=== PATIENT | male | born 1985 | race Two or more races ===

== ENCOUNTER 2018-01-18 12:14 | Emergency (ER) | payer OTHER ==
--- NOTE | 2018-01-18 13:05 | ED Physician Documentation ---
PD HPI HEENT - Stated complaint Stated Complaint: SWALLOWED FORIEGN OBJECT - Chief complaint Chief Complaint: Heent - History obtained from History obtained from: Patient - History of Present Illness Timing - onset: Last night Timing - details: Abrupt onset (he was eating cake with plastic fork and noted a sharp feeling when he swallowed, and noted a tyne of the fork was missing, apparently broken off. He had some discomfort with swallowing last night, but it is worse this morning. concerned it is stuck in his esophagus. He is able to swallow bread and water okay, but hurts to do so.) Location: Throat Worsens: Swalllowing Associated symptoms: No: Fever, Congestion Similar symptoms before: Has not had sx before Recently seen: Not recently seen Review of Systems Constitutional: denies: Fever Nose: denies: Rhinorrhea / runny nose, Congestion Throat: reports: Sore throat. denies: Oral lesions / sores, Swollen tonsils Cardiac: denies: Palpitations Respiratory: denies: Dyspnea, Cough GI: denies: Abdominal Pain, Nausea, Vomiting PD PAST MEDICAL HISTORY - Past Medical History Past Medical History: No Respiratory: None - Past Surgical History Past Surgical History: No - Present Medications Home Medications: Ambulatory Orders Medication Instructions Recorded Confirmed Lidocaine Viscous 2% [Xylocaine 5 ml PO Q4H PRN #1 bottle 01/18/18 Viscous 2%] - Allergies Allergies/Adverse Reactions: Allergies Allergy/AdvReac Type Severity Reaction Status Date / Time No Known Drug Allergies Allergy Verified 01/18/18 12:33 - Social History Does the pt smoke?: No Smoking Status: Never smoker Does the pt drink ETOH?: Yes Does the pt have substance abuse?: No - Immunizations Immunizations are current?: Yes PD ED PE NORMAL - Vitals Vital signs reviewed: Yes - General General: Alert and oriented X 3, No acute distress, Well developed/nourished - HEENT HEENT: Pharynx benign - Neck Neck: Supple, no meningeal sign, No adenopathy - Cardiac Cardiac: RRR, No murmur - Respiratory Respiratory: Clear bilaterally - Neuro Neuro: Alert and oriented X 3, No motor deficit, Normal speech Results - Vitals Vitals: Vital Signs - 24 hr 01/18/18 01/18/18 12:28 15:43 Temperature 36.5 C Heart Rate 59 L 61 Respiratory 18 16 Rate Blood Pressure 107/67 115/87 H O2 Saturation 97 99 Oxygen O2 Source Room air PD MEDICAL DECISION MAKING - ED course Complexity details: reviewed results (CT done and no FB seen (not 100% i'm sure ) and no signs of medistinal inflammation.), considered differential (consider EGD versus other evaluation. Concern for FB and also mediastinitis.), d/w patient, d/w applications sales consultant (Dr. Beck - who looked at CT and did not see obvious FB. It could still be there though. Consider abrasion more. To give it a day or so and do EGD if still symptomatic then. ) - Sepsis Event Vital Signs: Vital Signs - 24 hr 01/18/18 01/18/18 12:28 15:43 Temperature 36.5 C Heart Rate 59 L 61 Respiratory 18 16 Rate Blood Pressure 107/67 115/87 H O2 Saturation 97 99 Oxygen O2 Source Room air Departure - Departure Disposition: 01 Home, Self Care Clinical Impression: Esophageal pain Condition: Stable Record reviewed to determine appropriate education?: Yes Follow-Up: NILAY BECK MD [Provider Admit Priv/Credential] - [facility]Provider Group] Prescriptions: Lidocaine Viscous 2% [Xylocaine Viscous 2%] 5 ml PO Q4H PRN #1 bottle PRN Reason: Pain Comments: The radiologist and surgeon did not see any obvious foreign body on the CT scan nor signs of esophageal local inflammation. There may be an abrasion of the esophagus that is hurting and that would heal within another day or [address] scan is not 100% accurate so if you have persistent symptoms for another day or 2 then call the surgical center or return to the ER for possible esophageal endoscopy. Return sooner if worsening pain, fever, vomiting, other problems. Use Tylenol or ibuprofen if needed for pain. Soft food only for the next day. Add lidocaine with antacid to help with discomfort as needed. Discharge Date/Time: 01/18/18 15:43
[2018-01-18] MEDS ORDERED: MAG HYDROX/AL HYDROX/SIMETH 30 ML UDC PO STA (13:28)
[2018-01-18] MEDS ORDERED: LIDOCAINE VISCOUS 2% 15 ML UDC MM STA (13:28)
--- NOTE | 2018-01-18 14:41 | CT Report ---
Procedure Date: 01/18/2018 Accession Number: [id number] / [id number] Procedure: CT - Chest W/O CPT Code: FULL RESULT: EXAM: CT CHEST EXAM DATE: 01/18/2018 02:17 PM. CLINICAL HISTORY: Possible esophageal FB; plastic fork tyne. COMPARISONS: None. TECHNIQUE: Routine helical CT imaging was performed through the chest. IV contrast: None. Reconstructions: Coronal and sagittal. In accordance with CT protocol optimization, one or more of the following dose reduction techniques were utilized for this exam: automated exposure control, adjustment of mA and/or KV based on patient size, or use of iterative reconstructive technique. FINDINGS: Lungs/Pleura: No nodules, bronchial thickening, consolidation, or edema. Pulmonary vasculature is normal. No pericardial or pleural effusion. No pneumothorax. No endobronchial lesions nor foreign bodies. Mediastinum: Normal. No adenopathy or masses. The heart and great vessels are normal. Subglottic cervical esophagus normal. Thoracic esophagus is normal. No foreign bodies. Bones: Unremarkable. Visualized Abdomen: Unremarkable. Other: No foreign bodies. IMPRESSION: Normal noncontrast chest CT. RADIA
[2018-01-18 15:45] VITALS: BP 115/87
== END 2018-01-18 15:43 | disposition home or self-care (01) ==
LOC: ED 12:14
DX: R07.0 Pain in throat (principal)
CPT/HCPCS: 71250; 99283; A9270

== ENCOUNTER 2018-09-19 12:28 | Emergency (ER) | payer OTHER ==
[2018-09-19 13:01] LABS: BASOPHILS % (AUTO) 1.4 %; EOSINOPHILS # (AUTO) 0.1 10^3/uL (0.0-0.7); EOSINOPHILS % (AUTO) 2.4 %; HGB - HEMOGLOBIN 13.6 g/dL (14.0-18.0); LYMPHOCYTES # (AUTO) 1.2 10^3/uL (1.5-3.5); LYMPHOCYTES % (AUTO) 31.5 %; MEAN CORPUSCULAR HEMOGLOBIN 30.7 pg (27.0-31.0); MEAN CORPUSCULAR HGB CONC 34.1 g/dL (32.0-36.0); MEAN PLATELET VOLUME 7.9 fL (7.4-11.4); MONOCYTES # (AUTO) 0.3 10^3/uL (0.0-1.0); MONOCYTES % (AUTO) 8.9 %; NEUTROPHILS % (AUTO) 55.8 %; PLT - PLATELET COUNT 188 10^3/uL (130-450); RED BLOOD COUNT 4.45 10^6/uL (4.70-6.10); RED CELL DISTRIBUTION WIDTH 12.7 % (12.0-15.0); WHITE BLOOD COUNT 3.7 x10^3/uL (4.8-10.8)
[2018-09-19 13:11] LABS: ALBUMIN 4.4 g/dL (3.2-5.5); ALBUMIN/GLOBULIN RATIO 1.7 (1.0-2.2); BILIRUBIN,TOTAL 0.8 mg/dL (0.2-1.0); CALCIUM 9.3 mg/dL (8.5-10.3); CREATININE 0.7 mg/dL (0.6-1.2)
[2018-09-19 14:29] VITALS: BP 127/83
--- NOTE | 2018-09-19 14:30 | ED Physician Documentation ---
PD HPI ABD PAIN - Stated complaint Stated Complaint: Rectal Bleed - Chief complaint Chief Complaint: General - History obtained from History obtained from: Patient - History of Present Illness Timing - onset: Other (This is a previously healthy 33-year-old gentleman with 3 days of rectal bleeding, sometimes with soft stools and sometimes without stools. He denies any rectal pain with it but does feel slightly bloated and has some lower abdominal pressure. He is mildly nauseous today.) Review of Systems Constitutional: denies: Fever, Chills, Myalgias, Fatigue, Weight Loss, Sweats GI: reports: Nausea. denies: Vomiting, Constipation, Hematemesis : denies: Dysuria, Frequency PD PAST MEDICAL HISTORY - Past Medical History Past Medical History: No Respiratory: None - Past Surgical History Past Surgical History: No - Present Medications Home Medications: Ambulatory Orders Medication Instructions Recorded Confirmed Hydrocortisone Acetate 25 mg RC TID 09/19/18 09/19/18 - Allergies Allergies/Adverse Reactions: Allergies Allergy/AdvReac Type Severity Reaction Status Date / Time No Known Drug Allergies Allergy Verified 09/19/18 14:19 - Social History Does the pt smoke?: No Smoking Status: Never smoker Does the pt drink ETOH?: Yes Does the pt have substance abuse?: No - Immunizations Immunizations are current?: Yes PD ED PE NORMAL - Vitals Vital signs reviewed: Yes - General General: Alert and oriented X 3, No acute distress - Abdomen Abdomen: Normal bowel sounds, Soft, Non tender - Male Male : Other (No external hemorrhoids, nontender, no gross blood in the vault.) - Derm Derm: Normal color, Warm and dry - Neuro Neuro: Alert and oriented X 3, Normal speech Results - Vitals Vitals: Vital Signs - 24 hr 09/19/18 09/19/18 12:36 14:16 Temperature 36.5 C 36.4 C L Heart Rate 71 64 Respiratory 14 18 Rate Blood Pressure 128/71 140/84 H O2 Saturation 98 100 Oxygen O2 Source Room air - Labs Labs: Laboratory Tests 09/19/18 09/19/18 12:50 12:50 WBC 3.7 L RBC 4.45 L Hgb 13.6 L Hct 40.0 L MCV 90.0 MCH 30.7 MCHC 34.1 RDW 12.7 Plt Count 188 MPV 7.9 Neut # (Auto) 2.0 Lymph # (Auto) 1.2 L [place] # (Auto) 0.3 Eos # (Auto) 0.1 Baso # (Auto) 0.0 Absolute Nucleated RBC 0.00 Nucleated RBC % 0.0 Sodium 136 Potassium 3.8 Chloride 100 L Carbon Dioxide 28 Anion Gap 8.0 BUN 12 Creatinine 0.7 Estimated GFR (MDRD) 131 Glucose 129 H Calcium 9.3 Total Bilirubin 0.8 AST 29 ALT 27 Alkaline Phosphatase 54 Total Protein 7.0 Albumin 4.4 Globulin 2.6 Albumin/Globulin Ratio 1.7 Lipase 26 PD MEDICAL DECISION MAKING - ED course ED course: This is a 33-year-old gentleman who is hemodynamically stable with a lower GI bleed, no evidence of hemorrhoid. The pattern is concerning for inflammatory bowel disease, his labs today are reassuring and close follow-up for colonoscopy with his primary care physician was advised. Departure - Departure Disposition: 01 Home, Self Care Clinical Impression: Hematochezia Condition: Good Record reviewed to determine appropriate education?: Yes Instructions: ED Hematochezia Stable Comments: As discussed, your presentation is concerning for something like inflammatory bowel disease such as Crohn's disease or ulcerative colitis. [place] to evaluate this. Return if worse or if the dizziness is worse. [place] Forms: Activity restrictions
== END 2018-09-19 14:45 | disposition home or self-care (01) ==
LOC: ED 12:28
DX: K92.1 Melena (principal)
CPT/HCPCS: 36415; 80053; 83690; 85025; 99283

== ENCOUNTER 2018-10-10 08:07 | Day surgery (SDC) | payer OTHER ==
[2018-10-10] MEDS ORDERED: LACTATED RINGERS 1,000 ML IV ONE ×3 (08:09→10:56)
[2018-10-10] MEDS ORDERED: fentaNYL 250 MCG/5 ML VIAL IVP ONE (09:30)
[2018-10-10] MEDS ORDERED: MIDAZOLAM 2 MG/2 ML VIAL IVP ONE (09:30)
[2018-10-10] MEDS ORDERED: LIDOCAINE-MPF 2% 5 ML VIAL IM ONE (10:54)
[2018-10-10] MEDS ORDERED: PROPOFOL 200 MG/20 ML VIAL IVP ONE (10:54)
[2018-10-10 12:18] VITALS: BP 113/72
== END 2018-10-10 08:08 | disposition home or self-care (01) ==
LOC: SDS 08:07
PROVIDERS: ATTEND Internal Medicine Gastroenterology
PROC: 0DBP8ZZ Excision of Rectum, Via Natural or Artificial Opening Endoscopic (ICD-10-PCS; principal; 2018-10-10 09:30)
DX: D12.8 Benign neoplasm of rectum (principal); K64.8 Other hemorrhoids; K59.09 Other constipation; Z87.891 Personal history of nicotine dependence
CPT/HCPCS: 45380; J3010; J7120

== ENCOUNTER 2019-01-14 09:38 | Outpatient (CLI) | payer OTHER ==
--- NOTE | 2019-01-14 23:59 | MRI Report ---
Reason: MIGRAINE, UNSPECIFIED, NOT INTRACTABLE, W/O STATUS Procedure Date: 01/14/2019 Accession Number: [id number] / [id number] Procedure: MRI - Brain W/O CPT Code: FULL RESULT: EXAM: MRI BRAIN WITHOUT CONTRAST COMPARISON: NONE. CLINICAL HISTORY: MIGRAINE, UNSPECIFIED, NOT INTRACTABLE, W/O STATUS. TECHNIQUE: Multiplanar multisequence imaging is performed through the head without contrast. FINDINGS: Diffusion-weighted imaging shows no acute infarct. Gradient sequence shows no evident prior parenchymal hemorrhage. T2 FLAIR imaging shows minimal white matter T2 prolongation, no masses. Ventricular size is normal. T2 spin-echo imaging shows no posterior fossa masses. No abnormal FLAIR signal in the vertebral arteries. No abnormal elevated T1 signal in the brain parenchyma. No developmental anomalies. Ventricular size is normal. Pituitary fossa, clivus and foramen magnum are unremarkable. Visualized orbits and calvarium are unremarkable. Medial temporal structures are normal. There is at least mild predominantly left-sided paranasal sinus mucosal thickening, with fluid in the left sphenoid sinus, finding which may be associated with headaches. Clinical correlation suggested. IMPRESSION: No acute infarct, parenchymal mass, or other discrete acute parenchymal process identified. There are findings concordant with paranasal sinusitis, particularly with an air-fluid level in the left sphenoid sinus. Finding may be associated with headache.
== END 2019-01-14 09:39 | disposition home or self-care (01) ==
LOC: DI 09:38
PROVIDERS: ATTEND Physician Assistant
DX: G43.909 Migraine, unspecified, not intractable, without status migrainosus (principal)
CPT/HCPCS: 70551

== ENCOUNTER 2019-08-21 13:59 | Emergency (ER) | payer OTHER ==
--- NOTE | 2019-08-21 14:36 | ED Physician Documentation ---
PD HPI CHEST PAIN - Stated complaint Stated Complaint: SOA/DIZZINESS - Chief complaint Chief Complaint: Resp - History obtained from History obtained from: Patient (33-year-old gentleman has had episodic shortness of breath for the last 2 days. There is no real pattern to it but it is usually with activity, he gets lightheaded when it happens. Does not last year on. It is associated with some very mild left lower anterior chest pain. Fatigue. No recent travel. No cough. No pedal edema or calf pain.) - Additional information Additional information: Nurses notes suggest there is a cough he denies this to me. Review of Systems Ten Systems: 10 systems reviewed and negative Constitutional: denies: Fever, Chills Nose: denies: Rhinorrhea / runny nose, Congestion Throat: denies: Sore throat Cardiac: denies: Palpitations, Pedal edema, Calf pain Respiratory: denies: Cough, Hemoptysis, Wheezing GI: denies: Abdominal Pain PD PAST MEDICAL HISTORY - Past Medical History Cardiovascular: None Respiratory: None Endocrine/Autoimmune: None GI: GI bleed, Hemorrhoids, Other : None HEENT: None Musculoskeletal: None Derm: None - Past Surgical History Past Surgical History: No Ortho: Other - Present Medications Home Medications: Ambulatory Orders Medication Instructions Recorded Confirmed No Known Home Medications 08/21/19 08/21/19 - Allergies Allergies/Adverse Reactions: Allergies Allergy/AdvReac Type Severity Reaction Status Date / Time No Known Drug Allergies Allergy Verified 08/21/19 14:07 - Social History Does the pt smoke?: No Smoking Status: Never smoker Does the pt drink ETOH?: Yes Does the pt have substance abuse?: No - Immunizations Immunizations are current?: Yes PD ED PE NORMAL - Vitals Vital signs reviewed: Yes - General General: Alert and oriented X 3, No acute distress - HEENT HEENT: PERRL, EOMI - Neck Neck: Supple, no meningeal sign, No bony TTP - Cardiac Cardiac: RRR, No murmur - Respiratory Respiratory: No respiratory distress, Clear bilaterally - Abdomen Abdomen: Non tender - Extremities Extremities: No edema, No calf tenderness / cord - Neuro Neuro: Alert and oriented X 3, No motor deficit, No sensory deficit, Normal speech Eye Opening: Spontaneous Motor: Obeys Commands Verbal: Oriented GCS Score: 15 - Psych Psych: Normal mood, Normal affect Results - Vitals Vitals: Vital Signs - 24 hr 08/21/19 14:04 Temperature 36.6 C Heart Rate 57 L Respiratory 18 Rate Blood Pressure 119/76 O2 Saturation 99 Oxygen O2 Source Room air - EKG (time done) 1439 Rate: Rate (enter#) (55) Rhythm: NSR [place]: Normal Intervals: Normal VT QRS: Normal Ischemia: ST elevation c/w repol. No: ST elevation c/w ischemia, ST depression Computer interpretation: Agree with computer - Labs Labs: Laboratory Tests 08/21/19 08/21/19 08/21/19 14:53 14:53 14:53 WBC 5.7 RBC 4.52 L Hgb 14.1 Hct 41.4 L MCV 91.6 MCH 31.2 H MCHC 34.1 RDW 12.1 Plt Count 191 MPV 10.0 Neut # (Auto) 4.1 Lymph # (Auto) 1.2 L [place] # (Auto) 0.4 Eos # (Auto) 0.1 Baso # (Auto) 0.1 Absolute Nucleated RBC 0.00 Nucleated RBC % 0.0 Sodium 135 Potassium 4.3 Chloride 100 L Carbon Dioxide 28 Anion Gap 7.0 BUN 14 Creatinine 0.7 Estimated GFR (MDRD) 131 Glucose 102 H Calcium 9.6 Total Bilirubin 0.3 AST 24 ALT 22 Alkaline Phosphatase 55 Troponin I High Sens 4.8 Total Protein 7.3 Albumin 4.6 Globulin 2.7 Albumin/Globulin Ratio 1.7 Lipase 26 - Rads (name of study) 2v chest Radiology: EMP read contemporaneously (Normal) PD MEDICAL DECISION MAKING - ED course ED course: 33-year-old gentleman with episodic lightheadedness and presyncope, is only been going on for a couple of days. His exam is normal but we need to consider heart problems so an EKG and a troponin will be checked as well as pulmonary issues and a chest x-ray which will be checked. I considered pulmonary embolism in this patient. Clinically the pretest probability of pulmonary embolism is less than 15%. I applied to the PERC rules as follows: The patient's age is under 50, heart rate less than 100, oxygen saturation greater than 94%, the patient does not have a history of DVT or PE. Patient has no recent trauma or surgery. The patient has no hemoptysis. The patient is not on exogenous estrogens. The patient does not have clinical signs suggesting DVT. As such the patient ruled out for pulmonary embolism by PERC criteria. Departure - Departure Disposition: 01 Home, Self Care Clinical Impression: Pre-syncope Dyspnea Qualifiers: Dyspnea type: shortness of breath Qualified Code(s): R06.02 - Shortness of breath; R06.00 - Dyspnea, unspecified; R06.01 - Orthopnea Condition: Good Record reviewed to determine appropriate education?: Yes Instructions: ED Dyspnea Shortness of Breath Comments: Review of symptoms today is not clear. There is no evidence of significant heart or lung issue. Your blood counts are normal. We also checked your electrolytes, kidney, liver function. It all seems normal. Return for new or worsening symptoms. Could be related to vaping, I recommend you just stop. [place] appointment. From my perspective there is no reason you cannot return to work.
[2019-08-21 14:58] LABS: BASOPHILS # (AUTO) 0.1 10^3/uL (0.0-0.1); BASOPHILS % (AUTO) 0.9 %; EOSINOPHILS # (AUTO) 0.1 10^3/uL (0.0-0.7); EOSINOPHILS % (AUTO) 1.4 %; HGB - HEMOGLOBIN 14.1 g/dL (14.0-18.0); LYMPHOCYTES # (AUTO) 1.2 10^3/uL (1.5-3.5); LYMPHOCYTES % (AUTO) 20.4 %; MEAN CORPUSCULAR HEMOGLOBIN 31.2 pg (27.0-31.0); MEAN CORPUSCULAR HGB CONC 34.1 g/dL (32.0-36.0); MEAN CORPUSCULAR VOLUME 91.6 fL (80.0-94.0); MONOCYTES # (AUTO) 0.4 10^3/uL (0.0-1.0); MONOCYTES % (AUTO) 6.4 %; NEUTROPHILS # (AUTO) 4.1 10^3/uL (1.5-6.6); NEUTROPHILS % (AUTO) 70.6 %; PLT - PLATELET COUNT 191 10^3/uL (130-450); RED BLOOD COUNT 4.52 10^6/uL (4.70-6.10); RED CELL DISTRIBUTION WIDTH 12.1 % (12.0-15.0); WHITE BLOOD COUNT 5.7 x10^3/uL (4.8-10.8)
--- NOTE | 2019-08-21 14:59 | XRAY Report ---
Reason: cough Procedure Date: 08/21/2019 Accession Number: [id number] / [id number] Procedure: XR - Chest 2 View X-Ray CPT Code: 16592 Final Report FULL RESULT: EXAM: CHEST RADIOGRAPHY EXAM DATE: 08/21/2019 02:45 PM. CLINICAL HISTORY: Cough. COMPARISON: None. TECHNIQUE: 2 views. FINDINGS: Lungs/Pleura: No focal opacities evident. No pleural effusion. No pneumothorax. Normal volumes. Mediastinum: Heart and mediastinal contours are unremarkable. Other: None. IMPRESSION: Normal 2-view chest radiography. RAD[facility]
[2019-08-21 15:21] LABS: ALBUMIN 4.6 g/dL (3.2-5.5); ALBUMIN/GLOBULIN RATIO 1.7 (1.0-2.2); BILIRUBIN,TOTAL 0.3 mg/dL (0.2-1.0); CALCIUM 9.6 mg/dL (8.5-10.3); CREATININE 0.7 mg/dL (0.6-1.2); TOTAL PROTEIN 7.3 g/dL (6.7-8.2)
[2019-08-21 15:50] VITALS: BP 110/72
== END 2019-08-21 15:49 | disposition home or self-care (01) ==
LOC: ED 13:59
DX: R55 Syncope and collapse (principal); R42 Dizziness and giddiness; R06.02 Shortness of breath; R06.01 Orthopnea; F17.290 Nicotine dependence, other tobacco product, uncomplicated
CPT/HCPCS: 36415; 71046; 80053; 83690; 84484; 85025; 93005; 99283; 99284

== ENCOUNTER 2019-10-02 11:00 | Emergency (ER) | payer OTHER ==
[2019-10-02 11:39] LABS: BASOPHILS # (AUTO) 0.1 10^3/uL (0.0-0.1); BASOPHILS % (AUTO) 1.2 %; EOSINOPHILS # (AUTO) 0.1 10^3/uL (0.0-0.7); EOSINOPHILS % (AUTO) 2.3 %; HGB - HEMOGLOBIN 14.1 g/dL (14.0-18.0); LYMPHOCYTES # (AUTO) 1.3 10^3/uL (1.5-3.5); LYMPHOCYTES % (AUTO) 26.1 %; MEAN CORPUSCULAR HEMOGLOBIN 31.4 pg (27.0-31.0); MEAN CORPUSCULAR HGB CONC 34.6 g/dL (32.0-36.0); MEAN CORPUSCULAR VOLUME 90.6 fL (80.0-94.0); MEAN PLATELET VOLUME 9.5 fL (7.4-11.4); MONOCYTES # (AUTO) 0.4 10^3/uL (0.0-1.0); MONOCYTES % (AUTO) 7.8 %; NEUTROPHILS % (AUTO) 62.2 %; PLT - PLATELET COUNT 224 10^3/uL (130-450); RED BLOOD COUNT 4.49 10^6/uL (4.70-6.10); RED CELL DISTRIBUTION WIDTH 12.1 % (12.0-15.0); WHITE BLOOD COUNT 4.9 x10^3/uL (4.8-10.8)
[2019-10-02 11:49] LABS: ALBUMIN 4.7 g/dL (3.2-5.5); ALBUMIN/GLOBULIN RATIO 1.6 (1.0-2.2); BILIRUBIN,TOTAL 0.8 mg/dL (0.2-1.0); CALCIUM 9.4 mg/dL (8.5-10.3); CREATININE 0.7 mg/dL (0.6-1.2); TOTAL PROTEIN 7.7 g/dL (6.7-8.2)
--- NOTE | 2019-10-02 12:32 | ED Physician Documentation ---
PD HPI GI BLEED - Stated complaint Stated Complaint: MALE - Chief complaint Chief Complaint: Abd Pain - History obtained from History obtained from: Patient - History of Present Illness Timing - onset: How many days ago (3) Timing - duration: Days (3) Timing - details: Gradual onset, Still present Associated symptoms: BRBPR Contributing factors: No: Sick contact, Bad food, Travel, Recent antibiotics, Alcohol use, Aspirin use, NSAID use, Stress, Anticoagulated, Diabetes Similar symptoms before: Diagnosis (internal hemmorrhoids) Recently seen: Not recently seen - Additional information Additional information: Previously well 34-year-old male has developed bright red blood per rectum over the past 3 days. He states that he has a little bit of blood each time that he wipes since last year. He does state that he now has some pain associated with all this and he can feel a hemorrhoidal tag externally. He has had colonoscopy in follow-up from his episode last year at which time there were internal h emorrhoids demonstrated. Review of Systems Constitutional: denies: Fever Eyes: denies: Decreased vision Ears: denies: Ear pain Nose: denies: Congestion Respiratory: denies: Dyspnea, Cough GI: reports: Diarrhea, Bloody / black stool. denies: Abdominal Pain, Nausea, Vomiting, Constipation : denies: Dysuria PD PAST MEDICAL HISTORY - Past Medical History Cardiovascular: None Respiratory: None Endocrine/Autoimmune: None GI: GI bleed, Hemorrhoids, Other : None HEENT: None Musculoskeletal: None Derm: None - Past Surgical History Past Surgical History: No Ortho: Other - Present Medications Home Medications: Ambulatory Orders Medication Instructions Recorded Confirmed No Known Home Medications 08/21/19 08/21/19 - Allergies Allergies/Adverse Reactions: Allergies Allergy/AdvReac Type Severity Reaction Status Date / Time No Known Drug Allergies Allergy Verified 10/02/19 11:11 - Social History Does the pt smoke?: No Smoking Status: Never smoker Does the pt drink ETOH?: Yes Does the pt have substance abuse?: No - Immunizations Immunizations are current?: Yes PD ED PE NORMAL - Vitals Vital signs reviewed: Yes (hypertensive ) - General General: Alert and oriented X 3, No acute distress, Well developed/nourished - HEENT HEENT: Atraumatic, PERRL, EOMI - Neck Neck: Supple, no meningeal sign, No bony TTP - Respiratory Respiratory: No respiratory distress - Rectal Rectal: Other (hemorrhoidal tags at 6 o'clock without evidence of thrombosis or active bleeding. There are inflamed internal hemorrhoids present and no blood or stool in the vault. 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, No motor deficit, No sensory deficit, Normal speech Eye Opening: Spontaneous Motor: Obeys Commands Verbal: Oriented GCS Score: 15 - Psych Psych: Normal mood, Normal affect Results - Vitals Vitals: Vital Signs - 24 hr 10/02/19 10/02/19 11:02 12:42 Temperature 36.9 C 36.9 C Heart Rate 66 68 Respiratory 16 20 Rate Blood Pressure 126/84 H 137/79 H O2 Saturation 99 100 Oxygen O2 Source Room air - Labs Labs: Laboratory Tests 10/02/19 10/02/19 11:28 11:28 WBC 4.9 RBC 4.49 L Hgb 14.1 Hct 40.7 L MCV 90.6 MCH 31.4 H MCHC 34.6 RDW 12.1 Plt Count 224 MPV 9.5 Neut # (Auto) 3.0 Lymph # (Auto) 1.3 L [place] # (Auto) 0.4 Eos # (Auto) 0.1 Baso # (Auto) 0.1 Absolute Nucleated RBC 0.00 Nucleated RBC % 0.0 Sodium 135 Potassium 4.1 Chloride 99 L Carbon Dioxide 28 Anion Gap 8.0 BUN 16 Creatinine 0.7 Estimated GFR (MDRD) 130 Glucose 111 H Calcium 9.4 Total Bilirubin 0.8 AST 32 ALT 37 Alkaline Phosphatase 66 Total Protein 7.7 Albumin 4.7 Globulin 3.0 Albumin/Globulin Ratio 1.6 Lipase 26 PD MEDICAL DECISION MAKING - ED course Complexity details: considered differential, d/w patient ED course: 34-year-old male with rectal bleeding has had prior episode of rectal bleeding and has had colonoscopy which did demonstrate internal hemorrhoids. He does have inflamed or engorged internal hemorrhoids now. I did not get any blood on the glove. I have discussed with the patient treatment of the hemorrhoids to include administration of hydrocortisone twice per day until his inflammation is controlled. I did discuss with the patient signs and symptoms of inflammatory bowel disease he does have chronically diarrhea he is now having some blood in this and I have recommended he follow-up again with the surgeon for potential scoping. Departure - Departure Disposition: 01 Home, Self Care Clinical Impression: Hematochezia Hemorrhoids Qualifiers: Hemorrhoid type: unspecified Qualified Code(s): K64.9 - Unspecified hemorrhoids Condition: Stable Instructions: ED Hemorrhoids, ED Hematochezia Stable Follow-Up: Des Pimentel MD [Primary Care Provider] - [facility]Provider Group] Comments: Today it appears your bleeding is due to hemorrhoids and my recommendation is to use some hydrocortisone 1% available [id number] twice per day until your symptoms are improved. Forms: Activity restrictions Discharge Date/Time: 10/02/19 12:45
[2019-10-02 12:43] VITALS: BP 137/79
== END 2019-10-02 12:45 | disposition home or self-care (01) ==
LOC: ED 11:00
DX: K92.1 Melena (principal); K64.8 Other hemorrhoids; K52.9 Noninfective gastroenteritis and colitis, unspecified
CPT/HCPCS: 36415; 80053; 83690; 85025; 99283; 99284

== ENCOUNTER 2020-02-14 09:02 | Outpatient (CLI) | payer OTHER ==
[2020-02-14 09:55] VITALS: BP 110/70
--- NOTE | 2020-02-14 09:55 | SLEEP CARE CONSULTATION ---
Information from patient questionnaire entered by Emely Etienne. I have reviewed and concur with the information entered by Emely Etienne. This document represents the service I personally performed and the decisions made by me, Aleyda Sharp ARNP. History of Present Illness Service Date and Time: 02/14/2020901 Reason for Visit: New patient Chief Complaint: reports: Unrefreshed sleep, Snoring, Excessive daytime sleepiness, Observed pauses in breathing, Fatigue, Frequent awakenings at night, Other (wake up during the night and can't go back to sleep, most nights). denies: Insomnia Date of Onset: 2+ years Usual bedtime: 6727-6883 Time it takes to fall asleep: 30-60 minutes Snores at night: Yes Observed to quit breathing while asleep: Yes Sleeps alone due to snoring: No Number of times waking at night: 3-5 Reasons for waking at night: reports: Snoring, Gasping for air. denies: Choking Toss, Turn, or Twitch while sleeping: Yes Recalls having dreams: Yes Usually gets out of bed at: [id number]; 0730 on weekends Feels refreshed in the morning: No Morning headache: Yes (2 times a month; 1-2 hours to all day) Sleepy or fatigued during the day: Yes Ever fallen asleep while driving: Yes (drowsy driving; no accidents) Takes day naps: No Dreams during day naps: Yes Prior sleep studies: No Additional HPI information: I had the pleasure of seeing MICHELE BURRIS today regarding the possibility of him having a sleep disorder. His current complaints are unrefreshed sleep, witness pauses in breathing when sleeping, excessive sleepiness, fatigue and frequent night awakenings. He feels like it is hard to get things done due to being tired all the time. His has witnessed pauses in his breathing and has had to "shake" him to get him breathing again. He has gained 25 pounds since the pandenic started due to his gym closing and reduced activity. He is currently working on losing the weight and getting back into shape. He has no medical conditions and is not on any medications. His father and 2 siblings are being treated for sleep apnea. He has grandparents on both sides who had sleep apnea. - Parasomnia Symptoms Ever been unable to move upon waking from sleep: Yes Walks in sleep: No Talks in sleep: No Ever acted out dreams in sleep: Yes Ever felt weak in the knees when startled or emotional: No Bothered by creepy, crawly, restless sensations in legs: No Problems with memory or concentration: Yes Subjective Initial [place] Sleepiness Scale score: 19 (in 2019) Past Medical History Past Medical History: reports: Impotence, Other (no diagnosis but experienced anxiety and mood swings). denies: Hypertension, Claustrophobia, Congestive Heart Failure, Diabetes, Stroke, Coronary Heart Disease, Arrythmia, Hypothyroidism, Anemia, Depression, Mood disorder, GERD, Attention deficit Social History The patient's occupation is active . Patient is and lives in [place]. Have you smoked in the past 12 months: No Cigarettes per day (20/pack): 10 Years of smokin Quit date: 2017 Smoking Pack Years: 6.0 Alcohol use: Yes Alcohol amount and frequency: 2-3 drinks, every 2 weeks Caffeine use: Yes Caffeine amount and frequency: 3 cups of coffee, 4 times a week Family History Family history of sleep disordered breathing: Yes (2 other siblings) Family Hx Sleep Apnea: Father: Snoring, Sleep apnea - Treated, Sibling: Snoring, Sleep apnea - Treated, Grandparent: Sleep apnea - Treated Allergies and Home Medications Drug allergies reviewed: Yes (NKDA) Home medication list reviewed: Yes (no medications; creatine just started yesterday for muscle building) Review of Systems Weight gain over past 5 years: 25 Cardiovascular: reports: have to sleep sitting up. denies: high blood pressure, palpitations, chest pain, irregular heart rate or pulse Respiratory: denies: shortness of breath, chronic cough Gastrointestinal: reports: heartburn. denies: difficulty swallowing Urinary: denies: impotence Neurological: denies: headaches, seizure, head trauma, speech dysfunction, gait or balance problems Psychiatric: reports: anxiety, mood disorder. denies: Attention Deficit Hyperactivity, depression, claustrophobia Ear/Nose/Throat: reports: nasal congestion, wisdom teeth removed. denies: sinus problems, nose bleeds, dry mouth/throat, hoarseness, injury to nose, tonsillectomy Endocrine: reports: sluggishness, unexplained weakness. denies: thyroid disease Musculoskeletal: reports: joint pain, neck pain, back pain, mobility problems Immunologic: reports: sneezing, rash, itching. denies: allergies to food or environment Physical Exam Blood Pressure: 110/70 Cuff size: long Heart Rate: 62 O2 Saturation: 98 Height: 6 ft Weight: 188 lb Body Mass Index: 25.4 BMI Classification: Overweight Neck circumference: 15.5 (inches) HEENT: No craniofacial malformation Nostrils: patent to airflow Turbinates: normal Septum: deviated left Mouth and throat: normal Soft palate: normal Hard palate: arched Uvula visualization: 100% Mallampati Class I Tongue: enlarged in size with teeth beltrán on lateral edges Tonsils: 1+ Chin and jaw: normal size and position Neck: normal w/o lymphadenopathy or thyromegaly Heart: regular rate and rhythm Lungs: clear bilaterally Extremities: no edema or clubbing Impression and Plan 1. Suspected Obstructive Sleep Apnea-Hypopnea Syndrome, as suggested by a history of loud and irregular snoring, observed cessation of breath while as leep, gasping or choking in sleep, frequent awakening during the night, unrefreshed sleep, cognitive impairment, and excessive daytime sleepiness. Narrow oropharynx and obesity are common predisposing factors for obstructive sleep apnea-hypopnea syndrome. I recommend proceeding to polysomnography to confirm the diagnosis and to assess severity. If the patient has significant sleep disordered breathing, a manual CPAP titration study will also be performed to find the optimal treatment pressure. I informed the patient of what the sleep studies involve and after some discussion, obtained agreement to proceed. The pathophysiology of obstructive sleep apnea-hypopnea syndrome was discussed with the patient and health risks of cardiovascular and cerebrovascular disease if not treated. AAS brochure for obstructive sleep apnea-hypopnea syndrome given and reviewed. Risks of drowsy driving discussed in detail and patient advised to avoid long distance driving and to machine puller at the first sign of drowsiness. Patient agreed to plan. AAS drowsy driving brochure given. * Schedule polysomnography +- manual CPAP titration study. * Avoid long distance driving or driving when feeling sleepy. * Avoid alcohol, sedative and muscle relaxant around bedtime. * Attempt to lose weight. * Review instructions provided by trained office staff on how to prepare for the sleep study. * Return for follow-up after sleep study completed. Visit Type: In Office Time Spent with Patient (minutes): 27 Provider Statement: I spent 100% of the Face to Face Visit with the patient with greater than 50% spent counseling the patient and coordination of care.
== END 2020-02-14 09:03 | disposition home or self-care (01) ==
LOC: SC 09:02
PROVIDERS: ATTEND Nurse Practitioner Family
DX: R06.83 Snoring (principal); R06.81 Apnea, not elsewhere classified; R53.83 Other fatigue; G47.10 Hypersomnia, unspecified; G47.8 Other sleep disorders; E66.3 Overweight; Z68.25 Body mass index [BMI] 25.0-25.9, adult
CPT/HCPCS: 99204; 99212

== ENCOUNTER 2020-02-29 12:19 | Emergency (ER) | payer OTHER ==
--- NOTE | 2020-02-29 14:38 | ED Physician Documentation ---
History of Present Illness - Stated complaint Stated Complaint: MALE /ABD PX - Chief complaint Chief Complaint: Abd Pain - History obtained from History obtained from: Patient - History of Present Illness Timing: Today Pain level max: 5 Pain level now: 4 - Additonal information Additional information: 34-year-old male presents to the emergency department stating that he has left lower quadrant abdominal pain radiating into the left groin. States he has tenderness to palpation over the left testicle and noticed mild swelling earlier today. No change in sexual partners. No STI exposure. No penile discharge. Nothing makes it better or worse. Has not had similar symptoms in the past. No dysuria, urinary frequency. Nothing makes it better or worse Review of Systems Constitutional: denies: Fever, Chills Nose: denies: Rhinorrhea / runny nose, Congestion Throat: denies: Sore throat Cardiac: denies: Chest pain / pressure, Palpitations Respiratory: denies: Dyspnea, Cough GI: denies: Abdominal Pain, Nausea, Vomiting, Diarrhea : denies: Dysuria, Frequency, Hesitancy, Incontinent, Hematuria, Discharge Skin: denies: Rash Musculoskeletal: denies: Neck pain, Back pain Neurologic: denies: Headache PD PAST MEDICAL HISTORY - Past Medical History Past Medical History: Yes Cardiovascular: None Respiratory: None Neuro: None Endocrine/Autoimmune: None GI: GI bleed, Hemorrhoids, Other : None HEENT: None Musculoskeletal: None Derm: None - Past Surgical History Past Surgical History: No Ortho: Other - Present Medications Home Medications: Ambulatory Orders Medication Instructions Recorded Confirmed No Known Home Medications 08/21/19 08/21/19 - Allergies Allergies/Adverse Reactions: Allergies Allergy/AdvReac Type Severity Reaction Status Date / Time No Known Drug Allergies Allergy Verified 10/02/19 11:11 - Social History Does the pt smoke?: No Smoking Status: Never smoker Does the pt drink ETOH?: Yes ETOH Use: Wine Does the pt have substance abuse?: No - Immunizations Immunizations are current?: Yes PD ED PE NORMAL - Vitals Vital signs reviewed: Yes - General General: Alert and oriented X 3, No acute distress, Well developed/nourished - HEENT HEENT: Moist mucous membranes, Pharynx benign - Neck Neck: Supple, no meningeal sign - Cardiac Cardiac: RRR, Strong equal pulses - Respiratory Respiratory: No respiratory distress, Clear bilaterally - Abdomen Abdomen: Normal bowel sounds, Soft, Non tender, Non distended - Male Male : Other (Normal testicular exam. No lymphadenopathy. No swelling. No palpable hernia. No discharge. No testicular tenderness. Normal lie.) - Back Back: No CVA TTP, No spinal TTP - Derm Derm: Warm and dry - Neuro Neuro: Alert and oriented X 3 - Psych Psych: Normal mood, Normal affect Results - Vitals Vitals: Vital Signs - 24 hr 02/29/20 02/29/20 02/29/20 12:34 14:15 16:12 Temperature 36.8 C 36.8 C 36.8 C Heart Rate 83 59 L 64 Respiratory 16 14 16 Rate Blood Pressure 117/70 129/70 118/74 O2 Saturation 97 100 95 Oxygen O2 Source Room air - Labs Labs: Laboratory Tests 02/29/20 15:07 Urine Color YELLOW Urine Clarity CLEAR Urine pH 6.5 Ur Specific [place] 1.020 Urine Protein NEGATIVE Urine Glucose (UA) NEGATIVE Urine Ketones NEGATIVE Urine Occult Blood NEGATIVE Urine Nitrite NEGATIVE Urine Bilirubin NEGATIVE Urine Urobilinogen 0.2 (NORMAL) Ur Leukocyte Esterase NEGATIVE Ur Microscopic Review NOT INDICATED Urine Culture Comments NOT INDICATED - Rads (name of study) testicular US Radiology: Prelim report reviewed, EMP read contemporaneously, See rad report (No acute abnormality) PD MEDICAL DECISION MAKING - ED course Complexity details: reviewed results, re-evaluated patient, considered differential, d/w patient ED course: Unclear etiology of the patient's pain, possible inguinal hernia? No acute findings on ultrasound. Normal urinalysis. No evidence of ureteral stone. Abdomen is soft, nontender nondistended. Normal examination otherwise. We will continue supportive care and have him follow-up with his doctor for repeat evaluation. Patient counseled regarding signs and symptoms for which I believe and urgent re-evaluation would be necessary. Patient with good understanding of and agreement to plan and is comfortable going home at this time This document was made in part using voice recognition software. While efforts are made to proofread this document, sound alike and grammatical errors may occur. Departure - Departure Disposition: 01 Home, Self Care Clinical Impression: Testicular pain, left Condition: Good Instructions: ED Testicular Pain [facility] Follow-Up: Des Pimentel MD [Primary Care Provider] - Within 1 week Comments: Cause of your symptoms is unclear today, it may be related to a left inguinal hernia. Your ultrasound does not show any acute abnormalities. Your urinalysis is clear. No evidence of ureteral stone. Recommend that you follow-up with your doctor next week for repeat evaluation. You can use Motrin or Tylenol as needed for pain. Return if you worsen Discharge Date/Time: 02/29/20 16:27
--- NOTE | 2020-02-29 15:15 | Ultrasound Report ---
PROCEDURE: Testicle w/Doppler INDICATIONS: L testicular pain TECHNIQUE: Real-time scanning was performed of the scrotum and testicles, with image documentation. Color and p ulse Doppler interrogation was performed of both testicles. COMPARISON: None. FINDINGS: Right: Testicle is normal in size at 4.8 x 3.6 x 2.6 cm, and homogenous in echotexture. Punctate pa renchymal calcification. Epididymis is normal in overall size and morphology. Right epididymal cyst measuring 4 x 3 x 2 mm. No hydrocele or varicoceles. Overlying scrotal skin is normal in thickness. Left: Testicle is normal in size at 4.7 x 3 x 2.6 cm, and homogeneous in echotexture. Epididymis is normal in overall size and morphology. No hydrocele or varicoceles. Overlying scrotal skin is norm al in thickness. Doppler: Color and pulse Doppler demonstrate normal and symmetric arterial flow in both testicles. IMPRESSION: No findings to suggest epididymoorchitis. No testicular torsion. No scrotal wall thickening seen. No hydrocele. No varicocele. No testicular mass. Reviewed by: Lamont Schmitt MD on 02/29/2020 3:14 PM PDT Approved by: Lamont Schmitt MD on 02/29/2020 3:14 PM PDT Station ID: [id number]
[2020-02-29 15:36] LABS: BILIRUBIN,URINE NEGATIVE (NEGATIVE); GLUCOSE, URINE (UA) NEGATIVE (NEGATIVE); KETONES,URINE (UA) NEGATIVE (NEGATIVE); LEUKOCYTE ESTERASE, URINE NEGATIVE (NEGATIVE); NITRITE,URINE NEGATIVE (NEGATIVE); OCCULT BLOOD,URINE NEGATIVE (NEGATIVE); PH,URINE 6.5 PH (5.0-7.5); PROTEIN,URINE NEGATIVE (NEGATIVE); UROBILINOGEN,URINE 0.2 (NORMAL) E.U./dL (NORMAL)
[2020-02-29 15:39] LABS: CLARITY,URINE CLEAR (CLEAR)
[2020-02-29 16:13] VITALS: BP 118/74
== END 2020-02-29 16:27 | disposition home or self-care (01) ==
LOC: ED 12:19
DX: N50.812 Left testicular pain (principal)
CPT/HCPCS: 76870; 81001; 81003; 87086; 93975; 99284

== ENCOUNTER 2020-04-07 20:14 | Outpatient (CLI) | payer OTHER | END 2020-04-07 20:15 | disposition home or self-care (01) | LOC: SC 20:14 | PROVIDERS: ATTEND Nurse Practitioner Family | DX: R06.83 Snoring (principal); G47.10 Hypersomnia, unspecified; R53.83 Other fatigue; G47.8 Other sleep disorders; R06.81 Apnea, not elsewhere classified; E66.3 Overweight; Z68.25 Body mass index [BMI] 25.0-25.9, adult | CPT/HCPCS: 95810 ==

== ENCOUNTER 2020-04-12 13:01 | Outpatient (CLI) | payer OTHER ==
--- NOTE | 2020-04-12 13:36 | SLEEP CARE CONSULTATION ---
Information from patient questionnaire entered by Amanda De La Cruz. I have reviewed and concur with the information entered by Amanda De La Cruz. This document represents the service I personally performed and the decisions made by , Aleyda Sharp ARNP. History of Present Illness Service Date and Time: 04/12/2020 1301 Initial [place] Sleepiness Scale score: 19 (in 2020) Current [place] Sleepiness Scale score: 17 Additional HPI information: MICHELE ANDERSON returns for follow up and results of the recently performed polysomnography. The patient was informed of the following findings: No significant sleep disordered breathing with an average AHI 0.0 and ivone oxygen saturation of 93%. I explained the pathophysiology behind obstructive sleep apnea. Patient does not have sleep apnea and was advised how weight gain could increase the risk of developing sleep apnea in the future. Patient has light snoring. Snoring can be reduced by weight loss. Weight loss is best achieved with diet consult. Patient instructed to contact PCP for referral. Snoring can also be treated with an oral appliance from a dentist. Advised to check insurance coverage. In addition, an ENT evaluation can be do to see if other treatment is indicated. Patient counseled not drink alcohol less than 4 hours before bedtime as it can increase snoring and apnea. Patient was cautioned about risks of drowsy driving until sleepiness symptoms resolve. Sleep Study - Results Polysomnography/Home Sleep Study results: IMPRESSION: The quality of the study is good. The patient had slightly reduced sleep efficiency due to frequent awakenings after the sleep onset. Despite moderate sleep fragmentation, the sleep architecture was normal. Respiratory monitoring showed no significant sleep disordered breathing (AHI = 0.0) or hypoxia (ivone oxygen saturation of 93%). The slept mostly supine (supine AHI = 0.0; non-supine = 0.00). Snore was light in intensity. There was no significant periodic leg movement of sleep. Cardiac rhythm was normal sinus rhythm without significant arrhythmia. No abnormal behavior (parasomnia) observed during the night. Allergies and Home Medications Drug allergies reviewed: Yes (NKDA) Home medication list reviewed: Yes (no changes) Review of Systems Review of systems same as previous: Yes (no changes) Physical Exam Heart Rate: 69 O2 Saturation: 98 Height: 5 ft 11 in Weight: 182 lb Body Mass Index: 25.4 BMI Classification: Overweight Impression and Plan 1. Snoring but no significant sleep disordered breathing. Patient advised that often weight loss will reduce snoring as well as apnea risk. An oral appliance can also be used for snoring. This would require a dental consultation. Patient cautioned not to use other online appliances as can cause bite issues. Patient is advised to check if insurance will cover. An ENT consult can also be helpful to determine if any other treatment is an option. 2. Insomnia, unable to maintain sleep, unspecified. He is able to go to sleep but awakens many times during the night and has difficulty going back to sleep. This was seen during his sleep study as well despite the fact that he took a "sleeping pill". Patient was given and explained [facility] brochures on Understanding Insomnia and How to sleep better. He is to review these at home and see what improvements he can make to improve his sleep quality. He was advised to follow up if his insomnia and daytime fatigue continue or worsen with his PCP or here as needed. * Avoid alcohol consumption near bedtime * The patient is cautioned about driving until sleepiness is completely resolved. * Return as needed for follow up if symptoms do not resolve, worsen or change. Visit Type: In Office Time Spent with Patient (minutes): 15 Provider Statement: I spent 100% of the Face to Face Visit with the patient with greater than 50% spent counseling the patient and coordination of care.
== END 2020-04-12 13:02 | disposition home or self-care (01) ==
LOC: SC 13:01
PROVIDERS: ATTEND Nurse Practitioner Family
DX: R06.83 Snoring (principal); G47.00 Insomnia, unspecified
CPT/HCPCS: 99212

== ENCOUNTER 2020-05-15 15:32 | Outpatient (CLI) | payer OTHER | END 2020-05-15 15:33 | disposition home or self-care (01) | LOC: COV 15:32 | PROVIDERS: ATTEND Family Medicine | DX: R05 Cough (principal); R53.83 Other fatigue; J02.9 Acute pharyngitis, unspecified; R09.81 Nasal congestion; Z20.828 Contact with and (suspected) exposure to other viral communicable diseases ==